=== PATIENT | female | born 1970 | race Caucasian/White ===

== ENCOUNTER 2016-08-24 18:53 | Emergency (ER) | payer MEDICARE, OTHER ==
[2016-08-24 19:32] LABS: MEAN CORPUSCULAR VOLUME 73.2 fl (80.0-100.0)
[2016-08-24] MEDS ORDERED: 0.9 % SODIUM CHLORIDE 1,000 ML IV ONE (19:40)
[2016-08-24 19:51] LABS: eGFR (African) > 60; eGFR (Non-African) > 60
[2016-08-24 20:01] LABS: MEAN CORPUSCULAR HEMOGLOBIN 17.7 pg (28.0-34.0)
[2016-08-24 20:02] LABS: ANISOCYTOSIS 1+ (NEGATIVE); BASOPHILS % 2 % (0-2); EOSINOPHILS % 3 % (0-7); HYPOCHROMASIA 2+ (NEGATIVE); MONOCYTES % 1 % (0-11); SEGMENTED NEUTROPHILS % 57 % (39-79); TARGET CELLS 1+ (NEGATIVE)
--- NOTE | 2016-08-24 20:14 | ED Physician Documentation ---
General Adult - HISTORIAN Historian: patient - HPI Stated Complaint: low hemoglobin Chief Complaint: General Adult Further Comments: yes (45 year old female patient presents with complaint of " my hemoglobin is 3". Patient states she was at Dr Barker's office today. Patient reports she was scheduled for a liver biopsy this week at [facility]. She states she had to wait too long so she left. Patient denies any work up related to anemia. Poor medical billing service. Patient reports "dark stools from my hemorrhoids".) - ROS CONST: recent illness EYES/ENT: none CVS/RESP: none GI/: none MS/SKIN/LYMPH: none NEURO/PSYCH: headache - PAST HX Past History: hypertension, other ("liver problems", depression) Allergies/Adverse Reactions: Allergies Allergy/AdvReac Type Severity Reaction Status Date / Time aspirin Allergy Mild Verified 08/24/16 19:20 cephalexin monohydrate Allergy Mild Lip Verified 08/24/16 19:20 [From Keflex] Swelling Home Medications: Ambulatory Orders Medication Instructions Recorded Albuterol Sulfate [Albuterol 2 puff PO PRN PRN 04/19/13 Sulfate Hfa] Furosemide [Lasix] 40 mg PO QD 04/19/13 Albuterol Sulfate [Proair HFA] 1 tab PO DIRECTED 03/13/15 Citalopram Hydrobromide [Celexa] 1 tab PO QDAY 08/24/16 Hydroxyzine Pamoate [Vistaril] 25 mg PO QDAY 08/24/16 Meloxicam [Mobic] 7.5 mg PO QDAY 08/24/16 Tiotropium [place] [Spiriva] 1 puff PO QDAY 08/24/16 Ursodiol [Actigall] 300 mg PO QDAY 08/24/16 - SOCIAL HX Smoking History: cigarettes - FAMILY HX Family History: No - VITAL SIGNS Vital Signs: Vital Signs Temp Pulse Resp BP Pulse Ox 97.8 F 100 H 16 120/53 100 08/24/16 19:00 08/24/16 19:00 08/24/16 19:00 08/24/16 19:00 08/24/16 19:00 - REVIEWED ASSESSMENTS Nursing Assessment Reviewed: Yes Vitals Reviewed: Yes Progress - Progress Progress: Reviewed hemoglobin with patient. Recommended transfer to [facility]. Will discuss transfusion of 0 neg uncross matched with [facility]. 2014 Call to [facility] [address] Massey. Will T&C at [facility] and transfuse there. Patient agrees with transfer via EMS. ED Results Lab/Radiology - Lab Results Lab Results: Lab Results 08/24/16 08/24/16 19:22 19:22 WBC 11.39 K/ul K/ul (4.00-12.00) RBC 3.05 M/ul L M/ul (3.90-5.20) Hgb 5.4 g/dL L* g/dL (12.0-16.0) Hct 22.3 % L % (34.5-46.5) MCV 73.2 fl L fl (80.0-100.0) MCH 17.7 pg L pg (28.0-34.0) MCHC 24.3 g/dL L g/dL (30.0-36.0) RDW 20.7 % H % (11.3-14.3) Plt Count 202 K/mm3 K/mm3 (130-400) Seg Neutrophils % 57 % % (39-79) Lymphocytes % 37 % % (16-50) Monocytes % 1 % % (0-11) Eosinophils % 3 % % (0-7) Basophils % 2 % % (0-2) Nucleated RBCs 1 % H % (0-0) Large Platelets Present H (NEGATIVE) Plt Morphology Comment Abnormal H (NORMAL) Polychromasia 1+ H (NEGATIVE) Hypochromasia 2+ H (NEGATIVE) Poikilocytosis 1+ H (NEGATIVE) Anisocytosis 1+ H (NEGATIVE) Microcytosis 1+ H (NEGATIVE) Target Cells 1+ H (NEGATIVE) RBC Morph Comment Abnormal H (NORMAL) Sodium 131 mmol/L L mmol/L (136-145) Potassium 3.8 mmol/L mmol/L (3.5-5.0) Chloride 101 mmol/L mmol/L (98-110) Carbon Dioxide 32 mmol/L mmol/L (20-32) BUN 9 mg/dL L mg/dL (10-26) Creatinine 0.5 mg/dL mg/dL (0.4-1.5) Estimated Creat Clear 219 Est GFR ( Amer) > 60 (60 - ) Est GFR (Non-Af Amer) > 60 (60 - ) Glucose 113 mg/dL H mg/dL (70-99) Calcium 8.4 mg/dL L mg/dL (8.5-10.5) Total Bilirubin 1.4 mg/dL H mg/dL (0.2-1.2) AST 149 U/L H U/L (0-41) ALT 101 U/L H U/L (0-45) Alkaline Phosphatase 1033 U/L H U/L (46-116) Total Protein 7.6 g/dL g/dL (6.0-8.5) Albumin 3.5 g/dL g/dL (3.0-5.5) - Orders Orders: ED Orders Category Date Time Status Continuous Pulse Oximetry Q30M Care 08/24/16 20:[address] Saline Lock/IV NOW Care 08/24/16 19:17 Active CBC/PLATELET/DIFF Stat Lab 08/24/16 19:22 Completed CMP Stat Lab 08/24/16 19:22 Completed 0.9 % Sodium Chloride [Normal Saline] 1,000 ml Med 08/24/16 19:40 Discontinued IV NOW General Adult Physical Exam - PHYSICAL EXAM GENERAL APPEARANCE: mild distress EENT: eye inspection normal, WILLIAM RESPIRATORY: no resp distress, chest non-tender, breath sounds normal CVS: reg rate & rhythm, heart sounds normal, equal pulses, no murmur, no gallop , PMI nml, no JVD, no friction rub, 24 ABDOMEN: soft, no organomegaly, normal bowel sounds, no abdominal bruit, tenderness (generalized), distended SKIN: warm/dry, jaundice, pallor EXTREMITIES: non-tender, normal range of motion, no evidence of injury, no edema , J, 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: oriented X3, CN's nml as tested, motor nml, sensation nml, mood/affect nml Discharge Clincal Impression: Severe anemia, Elevated LFTs Referrals: Jean Pierre Chaidez [Primary Care Provider] - 2 Days Home Medications: Ambulatory Orders Albuterol Sulfate [Albuterol Sulfate Hfa] 2 puff PO PRN PRN 04/19/13 Furosemide [Lasix] 40 mg PO QD 04/19/13 Albuterol Sulfate [Proair HFA] 1 tab PO DIRECTED 03/13/15 Citalopram Hydrobromide [Celexa] 1 tab PO QDAY 08/24/16 Hydroxyzine Pamoate [Vistaril] 25 mg PO QDAY 08/24/16 Meloxicam [Mobic] 7.5 mg PO QDAY 08/24/16 Tiotropium [place] [Spiriva] 1 puff PO QDAY 08/24/16 Ursodiol [Actigall] 300 mg PO QDAY 08/24/16 Condition: Poor Disposition: 02 XFER SHT-TRM HOSP Decision to Admit: NO Decision Time: 20:27
[2016-08-24 20:52] VITALS: BP 133/64
== END 2016-08-24 20:45 | disposition short-term general hospital (02) ==
LOC: ED 18:53
DX: D64.9 Anemia, unspecified (principal)
CPT/HCPCS: 80053; 85025; 85610; J7030; 99284; S1016

== ENCOUNTER 2016-12-01 19:03 | Emergency (ER) | payer MEDICARE, OTHER ==
[2016-12-01] MEDS ORDERED: IPRATROPIUM/ALBUTEROL SULFATE 3 ML AMPUL.NEB NEB ONE (19:47)
[2016-12-01] MEDS ORDERED: methylPREDNISolone SOD SUCC 125 MG/2 ML VIAL IVP ONE (19:52)
[2016-12-01] MEDS ORDERED: 0.9 % SODIUM CHLORIDE 1,000 ML IV ONE (19:52)
[2016-12-01] MEDS ORDERED: methylPREDNISolone SOD SUCC 125 MG/2 ML VIAL ONE (19:53)
[2016-12-01] MEDS ORDERED: BUDESONIDE 0.5MG/2ML AMPUL.NEB NEB ONE (19:58)
[2016-12-01] MEDS ORDERED: 0.9 % SODIUM CHLORIDE 1,000 ML IV SCH (20:00)
[2016-12-01 20:11] LABS: BASOPHILS % 0.5 (0.0-1.5); MEAN CORPUSCULAR HEMOGLOBIN 24.8 pg (28.0-34.0); MEAN CORPUSCULAR VOLUME 82.5 fl (80.0-100.0)
[2016-12-01 20:12] LABS: EOSINOPHILS % 1.1 % (0.0-6.8); MONOCYTES % 3.5 % (0.0-11.0); NEUTROPHILS # 7.3 # k/uL (1.4-7.7)
[2016-12-01 20:21] LABS: eGFR (African) > 60; eGFR (Non-African) > 60
[2016-12-01] MEDS ORDERED: BUDESONIDE 0.5MG/2ML AMPUL.NEB NEB SCH (21:00)
--- NOTE | 2016-12-01 21:11 | Diagnostic Imaging Report ---
CHENCHO PAVON [facility] [address] [facility] [address], [place]. [address] Report Submission Date: Dec 01, 2016 8:33:17 PM CDT Patient Study Name: FELISA TINSLEY Date: Dec 01, 2016 8:17:30 PM CDT Modality Type: CR Gender: F Description: CHEST : 74 Institution: [facility] Physician: CHENCHO PAVON Examination: PA and lateral chest. History: Evaluate lung hernandez. Findings: PA lateral chest demonstrate a normal cardiac and mediastinal silhouette. No focal infiltrate. No effusion. No blunting of the costophrenic margins. 3 mm right lung granuloma. Osseous structures are appropriate for age. Impression: No acute process. Electronically signed on Dec 01, 2016 8:33:17 PM CDT by: Ramy SAINZ
[2016-12-01] MEDS ORDERED: LORATADINE 10 MG TABLET PO ONE (21:16)
[2016-12-01] MEDS ORDERED: AZITHROMYCIN 250 MG TABLET PO ONE ×2 (21:18→21:19)
[2016-12-01 21:36] VITALS: BP 127/57
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
== END 2016-12-01 21:30 | disposition home or self-care (01) ==
LOC: ED 19:03
DX: J45.21 Mild intermittent asthma with (acute) exacerbation (principal)
CPT/HCPCS: 71020; 80053; 83605; 85025; J2930; J7030; J7626; 96361; 96374; 99283; S1016

== ENCOUNTER 2017-01-05 20:47 | Emergency (ER) | payer OTHER ==
[2017-01-05] MEDS: IPRATROPIUM/ALBUTEROL SULFATE 3 ML AMPUL.NEB NEB ONE (21:15)
--- NOTE | 2017-01-05 21:30 | Diagnostic Imaging Report ---
JONAS ASHFORD (NICO) - ER [facility] [address] [facility] [address] Report Submission Date: Jan 05, 2017 9:22:28 PM CDT Patient Study Name: FELISA TINSLEY Date: Jan 05, 2017 8:58:03 PM CDT Modality Type: CR Gender: F Description: CHEST : 74 Institution: [facility] Physician: JONAS ASHFORD (NICO) - ER Single view chest History: Cough Findings: Film artifact degrades image quality. There is no infiltrate or pleural effusion. A calcified right lung granuloma is present. Heart size and pulmonary vascularity are normal. Osseous structures are unremarkable. Impression: No acute abnormality. Electronically signed on Jan 05, 2017 9:22:28 PM CDT by: Bethel SAINZ
[2017-01-05 21:43] LABS: BASOPHILS % 0.4 (0.0-1.5); EOSINOPHILS % 1.1 % (0.0-6.8); MEAN CORPUSCULAR VOLUME 76.1 fl (80.0-100.0); NEUTROPHILS # 12.9 # k/uL (1.4-7.7)
[2017-01-05 21:52] LABS: eGFR (African) > 60; eGFR (Non-African) > 60
[2017-01-05] MEDS ORDERED: ALBUTEROL SULFATE 2.5 MG/3 ML AMPUL.NEB NEB ONE (22:06)
[2017-01-05] MEDS: ALBUTEROL SULFATE 2.5 MG/3 ML AMPUL.NEB NEB ONE (22:08)
[2017-01-05] MEDS: 0.9 % SODIUM CHLORIDE 500 ML IV ONE (22:10)
--- NOTE | 2017-01-05 22:18 | ED Physician Documentation ---
Dyspnea - HISTORIAN Historian: patient - HPI Stated Complaint: COUGH/CONGESTION Chief Complaint: Dyspnea Onset: days ago (2) Initiating Event: upper respiratory illness Exacerbated By: coughing Associated Symptoms: chills, fever, productive cough Further Comments: yes (46 year old female patient presents with complaints of dyspnea, cough, and SOB x 2 days, worsening cough and dyspnea.) - ROS CONST: recent illness EYES/ENT: none GI/: none NEURO/PSYCH: denies: headache MS/SKIN/LYMPH: none - PAST HX Lung Disease: COPD Other History: other (GERD, fatty liver, elevated LFTs, ) Allergies/Adverse Reactions: Allergies Allergy/AdvReac Type Severity Reaction Status Date / Time aspirin Allergy Mild Verified 01/05/17 21:24 cephalexin monohydrate Allergy Mild Lip Verified 01/05/17 21:24 [From Keflex] Swelling Sulfa (Sulfonamide Allergy Mild Verified 01/05/17 21:24 Antibiotics) Home Medications: Ambulatory Orders Medication Instructions Recorded Albuterol Sulfate [Albuterol 2 puff PO PRN PRN 04/19/13 Sulfate Hfa] Furosemide [Lasix] 40 mg PO QD 04/19/13 Albuterol Sulfate [Proair HFA] 1 tab PO DIRECTED 03/13/15 Ursodiol [Actigall] 300 mg PO QDAY 08/24/16 Pantoprazole Sodium [Protonix] 40 mg PO 0700 12/01/16 Sennosides/Docusate Sodium 1 each PO QDAY 12/01/16 [Sennalax-S Tablet] Trazodone HCl [Desyrel] 100 mg PO HS 12/01/16 - SOCIAL HX Smoking History: cigarettes - FAMILY HX Family History: denies: none - VITAL SIGNS Vital Signs: Vital Signs Temp Pulse Resp BP Pulse Ox 98.6 F 106 H 20 144/61 95 01/05/17 20:47 01/05/17 20:47 01/05/17 20:47 01/05/17 20:47 01/05/17 21:30 - REVIEWED ASSESSMENTS Nursing Assessment Reviewed: Yes Vitals Reviewed: Yes Progress - Progress Progress: Duoneb given on arrival, followed by albuterol. Slightly improved air movement , O2 on a 2L Reviewed lab and xray results with patient and family. Recommended transfer to [facility] for admission and further evaluation. Patient agrees with plan. Case discussed with the Dr Kinkaid, agrees with starting Solumedrol IV and levaquin. Will give pulmicort neb. - EKG/XRAY/CT EKG: rhythm (ST, rate 111) XRAY: chest (likely early RLL infiltrate) - Additional EKG/XRAY/Consults Time Called: 22:30 Consult/PCP: [facility] - Dr Massey, patient accepted for admission ED Results Lab/Radiology - Lab Results Lab Results: Lab Results 01/05/17 01/05/17 21:33 21:33 WBC 16.60 K/ul H K/ul (4.00-12.00) RBC 3.64 M/ul L M/ul (3.90-5.20) Hgb 8.0 g/dL L g/dL (12.0-16.0) Hct 27.7 % L % (34.5-46.5) MCV 76.1 fl L fl (80.0-100.0) MCH 22.0 pg L pg (28.0-34.0) MCHC 29.0 g/dL L g/dL (30.0-36.0) RDW 16.2 % H % (11.3-14.3) Plt Count 206 K/mm3 K/mm3 (130-400) Neut % (Auto) 78.0 % % (39.0-79.0) Lymph % (Auto) 13.3 % L % (16.0-50.0) [place] % (Auto) 6.0 % % (0.0-11.0) Eos % (Auto) 1.1 % % (0.0-6.8) Baso % (Auto) 0.4 (0.0-1.5) Neut # (Auto) 12.9 # k/uL H # k/uL (1.4-7.7) Lymph # (Auto) 2.2 # k/uL # k/uL (0.6-4.0) [place] # (Auto) 1.0 # k/uL H # k/uL (0.0-0.9) Eos # (Auto) 0.2 # k/uL # k/uL (0.0-0.6) Baso # (Auto) 0.1 # k/uL # k/uL (0.0-0.5) Reactive Lymphs % 1.1 % % (0.0-5.0) Reactive Lymphs # 0.2 # k/uL # k/uL (0.0-0.8) Sodium 132 mmol/L L mmol/L (136-145) Potassium 4.3 mmol/L mmol/L (3.5-5.0) Chloride 100 mmol/L mmol/L (98-110) Carbon Dioxide 24 mmol/L mmol/L (20-32) BUN 9 mg/dL L mg/dL (10-26) Creatinine 0.6 mg/dL mg/dL (0.4-1.5) Estimated Creat Clear 161 Est GFR ( Amer) > 60 (60 - ) Est GFR (Non-Af Amer) > 60 (60 - ) Glucose 132 mg/dL H mg/dL (70-99) Calcium 8.8 mg/dL mg/dL (8.5-10.5) Total Bilirubin 1.6 mg/dL H mg/dL (0.2-1.2) AST 80 U/L H U/L (0-41) ALT 84 U/L H U/L (0-45) Alkaline Phosphatase 951 U/L H U/L (46-116) Total Protein 8.1 g/dL g/dL (6.0-8.5) Albumin 3.9 g/dL g/dL (3.0-5.5) - Orders Orders: ED Orders Category Date Time Status Continuous Pulse Oximetry Q30M Care 01/05/17 20:[address] IV Lock 1T Care 01/05/17 20:58 Active CHEST 1 VIEW [RAD] Stat Exams 01/05/17 20:58 Completed CBC/PLATELET/DIFF Stat Lab 01/05/17 21:33 Completed CMP Stat Lab 01/05/17 21:33 Completed 0.9 % Sodium Chloride [Normal Saline] 1,000 ml Med 01/05/17 22:07 Active IV NOW 0.9 % Sodium Chloride [Normal Saline] 500 ml Med 01/05/17 22:07 Active IV NOW Albuterol Sulfate [Ventolin] Med 01/05/17 22:06 Discontinued 2.5 mg NEB NOW ONE Ipratropium/Albuterol Sulfate [Duoneb] Med 01/05/17 21:14 Discontinued 3 ml NEB NOW ONE Dyspnea Physical Exam - EXAM General Appearance: moderate distress EENT: eye inspection normal, ENT inspection normal, pharynx normal, no signs of dehydration, WILLIAM, no nystagmus, TM's nml Respiratory: no pain on inspiration, retractions, accessory muscle use, decreased air movement, wheezes (Bilateral), rhonchi (RLL), other (speaking in 2 -3 word sentences. 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: oriented x3, CN's nml as tested, motor nml, sensation nml, mood/ affect nml Discharge Clincal Impression: CAP (community acquired pneumonia), Elevated LFTs, Cough, Dyspnea on exertion Anemia Qualifiers: Anemia type: unspecified type Qualified Code(s): D64.9 - Anemia, unspecified Referrals: Jean Pierre Chaidez [Primary Care Provider] - 2 Days Home Medications: Ambulatory Orders Albuterol Sulfate [Albuterol Sulfate Hfa] 2 puff PO PRN PRN 04/19/13 Furosemide [Lasix] 40 mg PO QD 04/19/13 Albuterol Sulfate [Proair HFA] 1 tab PO DIRECTED 03/13/15 Ursodiol [Actigall] 300 mg PO QDAY 08/24/16 Pantoprazole Sodium [Protonix] 40 mg PO 0700 12/01/16 Sennosides/Docusate Sodium [Sennalax-S Tablet] 1 each PO QDAY 12/01/16 Trazodone HCl [Desyrel] 100 mg PO HS 12/01/16 Condition: Fair Disposition: 02 XFER SHT-TRM HOSP Decision to Admit: NO Decision Time: 22:42
[2017-01-05] MEDS ORDERED: LEVOFLOXACIN 250MG/D5W 50ML 50 ML IV ONE (22:34)
[2017-01-05] MEDS ORDERED: LEVOFLOXACIN 500MG/D5W 100ML 100 ML IV ONE (22:34)
[2017-01-05] MEDS: methylPREDNISolone SOD SUCC 125 MG/2 ML VIAL IVP ONE (22:39)
[2017-01-05] MEDS: LEVOFLOXACIN 250MG/D5W 50ML 250 MG in PREMIX BAG 1 BAG IV ONE (22:40)
[2017-01-05] MEDS: LEVOFLOXACIN 500MG/D5W 100ML 500 MG in PREMIX BAG 1 BAG IV ONE (22:40)
[2017-01-05] MEDS: BUDESONIDE 0.5MG/2ML AMPUL.NEB NEB ONE (22:56)
[2017-01-05] MEDS: 0.9 % SODIUM CHLORIDE 1,000 ML IV ONE (23:21)
[2017-01-05 23:23] VITALS: BP 127/64
== END 2017-01-05 23:21 | disposition short-term general hospital (02) ==
LOC: ED 20:47
DX: J18.9 Pneumonia, unspecified organism (principal); R05 Cough; R06.09 Other forms of dyspnea; D64.9 Anemia, unspecified
CPT/HCPCS: 71010; 80053; 85025; J1956; J2930; J7030; J7626; 96361; 96374; 96375; 99284

== ENCOUNTER 2017-06-25 13:28 | Emergency (ER) | payer OTHER ==
--- NOTE | 2017-06-25 13:35 | ED Physician Documentation ---
General Adult - HISTORIAN Historian: patient - HPI Stated Complaint: weakness Chief Complaint: Weakness Onset: hours (5) Timing: still present Severity: mild Further Comments: yes (history of anemia. She states she has a history of anemia and she has had increasing weakness over this day starting in AM> She states she sees a GI specialist due to blood in her stool . She denies any increased bleeding. She has anemia chronically and she is working with her specialist. She denies any dizzniess. Denies any Shortness of breath) Last known Well Code/Unknown Code: Unknown - ROS CONST: no problems CVS/RESP: denies: cough GI/: denies: abdominal pain, vomiting, nausea MS/SKIN/LYMPH: denies: rash NEURO/PSYCH: denies: dizziness - PAST HX Past History: other (Anemia ) Surgeries/Procedures: other Immunizations: UTD Allergies/Adverse Reactions: Allergies Allergy/AdvReac Type Severity Reaction Status Date / Time aspirin Allergy Mild Verified 06/25/17 13:49 cephalexin monohydrate Allergy Mild Lip Verified 06/25/17 13:49 [From Keflex] Swelling Sulfa (Sulfonamide Allergy Mild Verified 06/25/17 13:49 Antibiotics) Home Medications: Ambulatory Orders Medication Instructions Recorded Furosemide [Lasix] 40 mg PO QD 04/19/13 Ursodiol [Actigall] 300 mg PO QDAY 08/24/16 Pantoprazole Sodium [Protonix] 40 mg PO 0700 12/01/16 Sennosides/Docusate Sodium 1 each PO QDAY 12/01/16 [Sennalax-S Tablet] Trazodone HCl [Desyrel] 100 mg PO HS 12/01/16 Hydroxyzine Pamoate [Hydroxyzine 06/25/17 Pamoate] Tiotropium [place] [Spiriva] 06/25/17 oxyCODONE HCL [Percolone] 06/25/17 predniSONE [Deltasone] 06/25/17 - SOCIAL HX Smoking History: cigarettes Alcohol Use: none Drug Use: none - FAMILY HX Family History: No - VITAL SIGNS Vital Signs: Vital Signs Temp Pulse Resp BP Pulse Ox 127/64 01/05/17 23:22 - REVIEWED ASSESSMENTS Nursing Assessment Reviewed: Yes Vitals Reviewed: Yes General Adult Physical Exam - PHYSICAL EXAM GENERAL APPEARANCE: no distress EENT: eye inspection normal RESPIRATORY: no resp distress, chest non-tender, breath sounds normal CVS: reg rate & rhythm, heart sounds normal, equal pulses, no murmur ABDOMEN: soft, normal bowel sounds SKIN: pallor EXTREMITIES: non-tender, normal range of motion, no evidence of injury, no edema NEURO: oriented X3, CN's nml as tested, motor nml Discharge Clincal Impression: Anemia Qualifiers: Anemia type: other cause Other causes of anemia: other cause, not classified Qualified Code(s): D64.89 - Other specified anemias Diabetes Qualifiers: Diabetes mellitus type: type 2 Diabetes mellitus complication status: with hyperglycemia Diabetes mellitus retirement insulin use: without middle or intermediate school principal use Qualified Code(s): E11.65 - Type 2 diabetes mellitus with hyperglycemia Referrals: Jean Pierre Chaidez [Primary Care Provider] - 2 Days Comments: Glipizide 10 mg daily Follow up with PCP Monday Increase fluids Decrease sugars and carbs Return for any concerns of symptoms Condition: Stable Disposition: 01 HOME, SELF-CARE Decision to Admit: NO Date of Decison to Admit: 06/25/17 Decision Time: 15:04
[2017-06-25 14:31] LABS: MEAN CORPUSCULAR HEMOGLOBIN 21.3 pg (28.0-34.0); MEAN CORPUSCULAR VOLUME 80.6 fl (80.0-100.0)
[2017-06-25 14:41] LABS: eGFR (African) > 60; eGFR (Non-African) > 60
[2017-06-25 15:00] LABS: SEGMENTED NEUTROPHILS % 66 % (39-79)
[2017-06-25 15:01] LABS: BASOPHILS % 1 % (0-2); EOSINOPHILS % 2 % (0-7); MONOCYTES % 2 % (0-11)
[2017-06-25 15:10] VITALS: BP 130/78
== END 2017-06-25 15:08 | disposition home or self-care (01) ==
LOC: ED 13:28
DX: D64.89 Other specified anemias (principal); E11.65 Type 2 diabetes mellitus with hyperglycemia
CPT/HCPCS: 80053; 85025; 99282

== ENCOUNTER 2017-09-16 21:10 | Emergency (ER) | payer OTHER ==
[2017-09-16 21:36] VITALS: BP 115/59
--- NOTE | 2017-09-16 22:03 | ED Physician Documentation ---
General Adult - HISTORIAN Historian: patient, child - HPI Stated Complaint: NEEDS LABS Chief Complaint: General Adult Additional Information: increase weakness not eating as usual dec energy under eval for blood disease parhaps assoc w/ pbc liver disease Onset: days ago (prog past several days assoc occ anorexia) Timing: worse Severity: mild, moderate - ROS CONST: no problems (as above) EYES/ENT: denies: problems with vision CVS/RESP: none GI/: denies: abdominal pain MS/SKIN/LYMPH: none NEURO/PSYCH: denies: headache, fainting (anemia pbc liver disease dm gerd) - PAST HX Past History: other (as above) Surgeries/Procedures: none Allergies/Adverse Reactions: Allergies Allergy/AdvReac Type Severity Reaction Status Date / Time aspirin Allergy Mild Verified 09/16/17 21:36 cephalexin monohydrate Allergy Mild Lip Verified 09/16/17 21:36 [From Keflex] Swelling Sulfa (Sulfonamide Allergy Mild Verified 09/16/17 21:36 Antibiotics) Home Medications: Ambulatory Orders Medication Instructions Recorded Furosemide [Lasix] 40 mg PO QD 04/19/13 Ursodiol [Actigall] 300 mg PO QDAY 08/24/16 Pantoprazole Sodium [Protonix] 40 mg PO 0700 12/01/16 Sennosides/Docusate Sodium 1 each PO QDAY 12/01/16 [Sennalax-S Tablet] Trazodone HCl [Desyrel] 100 mg PO HS 12/01/16 Hydroxyzine Pamoate [Hydroxyzine 100 mg PO PRN PRN 06/25/17 Pamoate] Tiotropium [place] [Spiriva] 1 cap INH DAILY 06/25/17 oxyCODONE HCL [Percolone] 5 mg PO PRN PRN 06/25/17 predniSONE [Deltasone] 20 mg PO D 06/25/17 - SOCIAL HX Smoking History: less than 1 pack/day Alcohol Use: none Drug Use: none - FAMILY HX Family History: No - VITAL SIGNS Vital Signs: Vital Signs Temp Pulse Resp BP Pulse Ox 98.2 F 92 H 20 115/59 98 09/16/17 21:10 09/16/17 21:10 09/16/17 21:10 09/16/17 21:10 09/16/17 21:10 - REVIEWED ASSESSMENTS Nursing Assessment Reviewed: Yes Vitals Reviewed: Yes Progress - Results/Orders Results/Orders: nurse reports pt told her she needed go check on daughter. nurse noted on monitor she went out of hospital got in car and drove off. nurse called pt on cellphone went to voice mail did not get answer. pt did not appear seriously ill. orders had been written but pt left before nurse got to draw blood. will hold chart open for now in case pt does come back. 2237hrs ED Results Lab/Radiology - Orders Orders: ED Orders Category Date Time Status CBC/PLATELET/DIFF Routine Lab 09/16/17 Ordered CMP Routine Lab 09/16/17 Ordered DRUG SCREEN URINE MEDICAL ONLY Routine Lab 09/16/17 Ordered PT-INR Routine Lab 09/16/17 Ordered URINALYSIS Routine Lab 09/16/17 Ordered General Adult Physical Exam - PHYSICAL EXAM GENERAL APPEARANCE: mild distress EENT: eye inspection normal NECK: normal inspection, supple. No: carotid bruit RESPIRATORY: no resp distress, chest non-tender CVS: reg rate & rhythm, heart sounds normal ABDOMEN: soft, non-tender SKIN: warm/dry, normal color. No: cyanosis, diaphoresis, jaundice, mottled EXTREMITIES: non-tender, normal range of motion NEURO: oriented X3, CN's nml as tested, motor nml. No: sensation nml Discharge Clincal Impression: pt left ama Referrals: Jean Pierre Chaidez [Primary Care Provider] - 2 Days Condition: Good Disposition: AGAINST MEDICAL ADVICE Decision to Admit: NO Decision Time: 22:15
== END 2017-09-16 22:20 | disposition left against medical advice (07) ==
LOC: ED 21:10
DX: Z53.21 Procedure and treatment not carried out due to patient leaving prior to being seen by health care provider (principal)
CPT/HCPCS: 99282

== ENCOUNTER 2018-06-13 08:22 | Emergency (ER) | payer OTHER ==
[2018-06-13 08:40] VITALS: BP 142/84
--- NOTE | 2018-06-13 08:54 | ED Physician Documentation ---
Sore Throat/Dental Pain - HISTORIAN Historian: patient, spouse - HPI Stated Complaint: Dental pain Chief Complaint: Dental Pain Additional Information: dental lpain sepsis multi caries-pyrorrhea - this episode rt upper Onset: days ago (1-2) Context: Abscess, Dental Caries Associated Symptoms: fever, moderate, R ear pain (slight). denies: runny nose, congestion Worsened By: heat, cold - ROS CONST: no problems CVS/RESP: none. 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) Allergies/Adverse Reactions: Allergies Allergy/AdvReac Type Severity Reaction Status Date / Time aspirin Allergy Mild Verified 06/13/18 08:35 cephalexin monohydrate Allergy Mild Lip Verified 06/13/18 08:35 [From Keflex] Swelling Sulfa (Sulfonamide Allergy Mild Verified 06/13/18 08:35 Antibiotics) Home Medications: Ambulatory Orders Medication Instructions Recorded Furosemide [Lasix] 40 mg PO QD 04/19/13 Ursodiol [Actigall] 300 mg PO QDAY 08/24/16 Pantoprazole Sodium [Protonix] 40 mg PO 0700 12/01/16 Sennosides/Docusate Sodium 1 each PO QDAY 12/01/16 [Sennalax-S Tablet] Trazodone HCl [Desyrel] 100 mg PO HS 12/01/16 Hydroxyzine Pamoate 100 mg PO PRN PRN 06/25/17 Tiotropium [place] [Spiriva] 1 cap INH DAILY 06/25/17 oxyCODONE HCL [Percolone] 5 mg PO PRN PRN 06/25/17 Amoxicillin [Trimox] 500 mg PO QID 10 Days #40 capsule 06/13/18 - SOCIAL HX Smoking History: cigarettes Alcohol Use: none Drug Use: none - FAMILY HX Family History: Yes (mother w/ pyrorrhea) - VITAL SIGNS Vital Signs: Vital Signs Temp Pulse Resp BP Pulse Ox 98.2 F 89 15 142/84 98 06/13/18 08:27 06/13/18 08:27 06/13/18 08:27 06/13/18 08:27 06/13/18 08:27 Dental Pain Physical Exam - EXAM General Appearance: mild distress, moderate distress Head/Neck: head nml inspection (rt facial area swollen fran maxillary area) Eyes: eyes nml inspection Mouth/Throat: gums nml, pharynx nml, voice nml. No: lips nml, pharyngeal erythema Ear/Nose: No: TM erythema Respiratory: no resp. distress, breath sounds nml CVS: reg. rate & rhythm, heart sounds nml Abdomen: soft, non-tender Extremities: non-tender, nml ROM Skin: warm/dry, normal color. No: cyanosis, diaphoresis, jaundice, mottled Neuro/Psych: none Discharge Clincal Impression: dental abscess adv pyrorrhea Prescriptions: Amoxicillin [Trimox] 500 mg PO QID 10 Days #40 capsule Referrals: Jean Pierre Chaidez [Primary Care Provider] - 2 Days Comments: see dentist KYM Condition: Good Disposition: 01 HOME, SELF-CARE Decision to Admit: NO Decision Time: 09:00
== END 2018-06-13 08:54 | disposition home or self-care (01) ==
LOC: ED 08:22
DX: K04.7 Periapical abscess without sinus (principal); K05.6 Periodontal disease, unspecified; Z72.0 Tobacco use
CPT/HCPCS: 99281; 99282

== ENCOUNTER 2018-07-21 08:08 | Emergency (ER) | payer OTHER ==
--- NOTE | 2018-07-21 08:18 | ED Physician Documentation ---
General Adult - HISTORIAN Historian: patient - HPI Stated Complaint: cough - diarrhea x 1 this am Chief Complaint: Cough/ Upper Respiratory Onset: days ago (2) Timing: still present Severity: mild Further Comments: yes (She reports starting yesterday she has felt as though she had a temp. No measured temp. cough that is productive (she is a 1.5 ppd smoker) x 1 episode of diarrhea this am. She had a big mac for dinner last night. She states that she has decreased eating and drinking. She has a sick (here with her) so she has a sick contact. Headache (mild)) - ROS CONST: fever, recent illness EYES/ENT: none CVS/RESP: shortness of breath, cough MS/SKIN/LYMPH: none NEURO/PSYCH: headache - PAST HX Past History: COPD Other History: diabetes Type 2 Immunizations: UTD Allergies/Adverse Reactions: Allergies Allergy/AdvReac Type Severity Reaction Status Date / Time aspirin Allergy Mild Verified 07/21/18 08:53 cephalexin monohydrate Allergy Mild Lip Verified 07/21/18 08:53 [From Keflex] Swelling Sulfa (Sulfonamide Allergy Mild Verified 07/21/18 08:53 Antibiotics) Home Medications: Ambulatory Orders Medication Instructions Recorded Furosemide [Lasix] 40 mg PO QD 04/19/13 Ursodiol [Actigall] 300 mg PO QDAY 08/24/16 Pantoprazole Sodium [Protonix] 40 mg PO 0700 12/01/16 Trazodone HCl [Desyrel] 100 mg PO HS 12/01/16 Hydroxyzine Pamoate 100 mg PO PRN PRN 06/25/17 Tiotropium [place] [Spiriva] 1 cap INH DAILY 06/25/17 Amoxicillin [Trimox] 500 mg PO QID 10 Days #40 capsule 06/13/18 - SOCIAL HX Smoking History: cigarettes Alcohol Use: none Drug Use: none - FAMILY HX Family History: No - VITAL SIGNS Vital Signs: Vital Signs Temp Pulse Resp BP Pulse Ox 142/84 06/13/18 08:54 - REVIEWED ASSESSMENTS Nursing Assessment Reviewed: Yes Vitals Reviewed: Yes Progress - Progress Progress: 0915: wheezing and volume improved post neb DG 0955: discussed results and plan. She is agreeable DG ED Results Lab/Radiology - Radiology Radiology Impressions: 2 views of the chest History: Cough, shortness of breath No comparison studies The heart is normal in size. 7 mm right lower lung calcified granuloma. Hazy opacity left infrahilar region. No pleural effusion or pneumothorax Impression: Patchy left basilar opacity may be due to infiltrate/atelectasis. No pleural effusion. Electronically signed on Jul 21, 2018 9:51:45 AM LABEL MACHINE OPERATOR by: Sol Hooper General Adult Physical Exam - PHYSICAL EXAM GENERAL APPEARANCE: no distress EENT: eye inspection normal, no signs of dehydration NECK: normal inspection RESPIRATORY: no resp distress, chest non-tender, wheezes (diffuse - decreased air movement on right upper lobe) CVS: reg rate & rhythm, heart sounds normal ABDOMEN: soft, no distension SKIN: warm/dry, normal color EXTREMITIES: non-tender NEURO: oriented X3 Discharge Clincal Impression: CAP (community acquired pneumonia) Qualifiers: Laterality: left Lung location: lower lobe of lung Qualified Code(s): J18.1 - Lobar pneumonia, unspecified organism Referrals: Jean Pierre Chaidez [Primary Care Provider] - 2 Days Comments: 1. Medrol dose pack as directed 2. Azithromycing (zpack) - as directed 3. Ipratroprium/Albuterol - Use 1 vial in neb every 4 hours as needed for cough 4. Tessalon [place] 100 mg take 1 by mouth every 8 hours as needed for cough 5. OTC meds as needed for symptom relief 6. Follow up with PCP in 2-4 days 7. Return to ER for any concerns Condition: Stable Disposition: 01 HOME, SELF-CARE Decision to Admit: NO Date of Decison to Admit: 07/21/18 Decision Time: 09:58
[2018-07-21] MEDS ORDERED: IPRATROPIUM/ALBUTEROL SULFATE 3 ML AMPUL.NEB NEB ONE (08:45)
[2018-07-21 10:23] VITALS: BP 112/64
--- NOTE | 2018-07-21 18:24 | Diagnostic Imaging Report ---
LUIS GIVENS [facility] [id number] [facility] [address] [place], [place]. [address] Report Submission Date: Jul 21, 2018 9:51:45 AM CODE ENFORCEMENT SUPERVISOR Patient Study Name: FELISA TINSLEY Date: Jul 21, 2018 9:24:26 AM CODE ENFORCEMENT SUPERVISOR Modality Type: DX Gender: F Description: CHEST 2VIEW : 74 Institution: [facility] Physician: LUIS GIVENS 2 views of the chest History: Cough, shortness of breath No comparison studies The heart is normal in size. 7 mm right lower lung calcified granuloma. Hazy opacity left infrahilar region. No pleural effusion or pneumothorax Impression: Patchy left basilar opacity may be due to infiltrate/atelectasis. No pleural effusion. Electronically signed on Jul 21, 2018 9:51:45 AM CODE ENFORCEMENT SUPERVISOR by: Sol SAINZ
== END 2018-07-21 10:16 | disposition home or self-care (01) ==
LOC: ED 08:08
DX: J18.1 Lobar pneumonia, unspecified organism (principal); Z72.0 Tobacco use
CPT/HCPCS: 71046; 87400; 94640; 99283

== ENCOUNTER 2018-08-31 15:17 | Emergency (ER) | payer OTHER ==
--- NOTE | 2018-08-31 15:38 | ED Physician Documentation ---
General Adult - HISTORIAN Historian: patient - HPI Stated Complaint: bilateral rib pain Chief Complaint: General Adult (Bilateral Rib Pain) Additional Information: Patient is a 47-year-old female who presents to the ER with c/o bilateral rib discomfort. She states that she was treated for pneumonia a month ago but she no longer has a productive cough. She denies any f/c/n/v/d. She states that she has "soreness" to her ribs when she coughs or bends. She continues to smoke but states that she is down to 1/2 a pack from 2 ppd. Onset: days ago (approx. 5-7 days) Timing: still present, pain intermittent (with movement) Severity: mild Modifying Factors: cough/movement Location: bilateral ribs Further Comments: no - ROS CONST: recent illness (pneumonia 1 month ago) EYES/ENT: none CVS/RESP: cough (non productive). denies: shortness of breath GI/: none MS/SKIN/LYMPH: none NEURO/PSYCH: denies: headache - PAST HX Past History: COPD, hypertension Other History: diabetes Type 2 Immunizations: UTD Allergies/Adverse Reactions: Allergies Allergy/AdvReac Type Severity Reaction Status Date / Time aspirin Allergy Mild Verified 08/31/18 15:31 cephalexin monohydrate Allergy Mild Lip Verified 08/31/18 15:31 [From Keflex] Swelling Sulfa (Sulfonamide Allergy Mild Verified 08/31/18 15:31 Antibiotics) Home Medications: Ambulatory Orders Medication Instructions Recorded Furosemide [Lasix] 40 mg PO QD 04/19/13 Ursodiol [Actigall] 300 mg PO QDAY 08/24/16 Pantoprazole Sodium [Protonix] 40 mg PO 0700 12/01/16 Trazodone HCl [Desyrel] 100 mg PO HS 12/01/16 Hydroxyzine Pamoate 100 mg PO PRN PRN 06/25/17 Tiotropium [place] [Spiriva] 1 cap INH DAILY 06/25/17 Amoxicillin [Trimox] 500 mg PO QID 10 Days #40 capsule 06/13/18 Diclofenac Sodium [Voltaren] 50 mg PO BID PRN #20 tablet. 08/31/18 Methylprednisolone [Medrol] 4 mg PO DAILY #21 [email or web address] 08/31/18 - SOCIAL HX Smoking History: less than 1 pack/day (use to smoke 2 ppd) Alcohol Use: none Drug Use: none - FAMILY HX Family History: No - VITAL SIGNS Vital Signs: Vital Signs Temp Pulse Resp BP Pulse Ox 98.6 F 74 19 160/80 97 08/31/18 15:21 08/31/18 15:21 08/31/18 15:21 08/31/18 15:21 08/31/18 15:21 - REVIEWED ASSESSMENTS Nursing Assessment Reviewed: Yes Vitals Reviewed: Yes General Adult Physical Exam - PHYSICAL EXAM GENERAL APPEARANCE: no distress EENT: eye inspection normal, ENT inspection normal, pharynx normal, WILLIAM, TM's nml NECK: normal inspection RESPIRATORY: wheezes (end expiratory wheeze bibasilar), other (chest in tender on palpation to bilateral ribs) CVS: heart sounds normal, equal pulses ABDOMEN: soft, normal bowel sounds SKIN: warm/dry EXTREMITIES: normal range of motion NEURO: oriented X3, CN's nml as tested, motor nml, sensation nml, mood/affect nml, cognition normal Discharge Clincal Impression: Costochondritis Referrals: Jean Pierre Chaidez [REFERRING] - 2 Days Additional Instructions: Take Medrol dose pack as directed for inflammation Diclofenac 50 mg 1 tab by mouth twice a day as needed for discomfort Stop Smoking Be sure to keep taking deep breaths to prevent respiratory infections May use heating pad Follow up with PCP next week Condition: Good Disposition: 01 HOME, SELF-CARE Decision to Admit: NO Decision Time: 15:36
[2018-08-31 15:41] VITALS: BP 132/76
== END 2018-08-31 15:41 | disposition home or self-care (01) ==
LOC: ED 15:17
DX: M94.0 Chondrocostal junction syndrome [Tietze] (principal); Z72.0 Tobacco use
CPT/HCPCS: 99281; 99282